=== PATIENT | male | born 1970 | race Caucasian/White ===

== ENCOUNTER 2017-08-24 03:13 | Emergency (ER) | payer OTHER ==
[~2017-08-24] VITALS: Ht 182.9 cm; Wt 72.6 kg
--- NOTE | 2017-08-24 03:25 | Emergency Room Report ---
History of Present Illness General Chief Complaint: Abdominal Pain Source: Patient, EMS Present Illness HPI This is a 47-year-old male with no past medical history. He presents with chief complaint of right flank pain. Onset was last Sunday. He called 911 but a runaway. He also has some dark urine. He was doing well until tonight when the pain came on again. Pain is severe. Right side. No radiation. Pain is 9/ 10. Has nausea but no vomiting. Also has some dysuria. No discharge. Urine is dark. No family history of kidney stone. Allergies: Coded Allergies: No Known Allergies (Unverified , 08/24/17) Patient History Past Medical History: none, see triage record, old chart reviewed Past Surgical History: none Pertinent Family History: none Social History: Denies: smoking Immunizations: other Reviewed Nursing Documentation: PMH: Agreed, PSxH: Agreed Nursing Documentation-PMH Hx Hypertension: Yes Review of Systems Eye: Denies: eye pain, blurred vision ENT: Denies: ear pain, nose congestion, throat swelling Respiratory: Denies: cough, shortness of breath Cardiovascular: Denies: chest pain, palpitations Gastrointestinal: Reports: abdominal pain, Denies: diarrhea, nausea, vomiting Musculoskeletal: Denies: back pain, joint pain Skin: Denies: rash Neurological: Denies: headache, numbness Endocrine: Denies: increased thirst, increased urine Hematologic/Lymphatic: Denies: easy bruising All Other Systems: negative except mentioned in HPI Physical Exam Vital Signs Date Time Temp Pulse Resp B/P (MAP) Pulse Ox O2 Delivery O2 Flow Rate FiO2 08/24/17 03:12 97.9 64 18 180/92 98 Room Air vitals with high blood pressure Sp02 EP Interpretation: reviewed, normal General Appearance: well appearing, alert, mild distress - From pain Head: normocephalic, atraumatic Eyes: bilateral eye PERRL, bilateral eye EOMI ENT: hearing grossly normal, normal pharynx Neck: full range of motion, supple, no meningismus Respiratory: chest non-tender, lungs clear, normal breath sounds Cardiovascular #1: regular rate, rhythm, no murmur Gastrointestinal: normal bowel sounds, non tender, no mass, no organomegaly, no bruit, non-distended Musculoskeletal: back normal, gait/station normal, normal range of motion Psychiatric: mood/affect normal Skin: warm/dry Medical Decision Making Diagnostic Impression: Primary Impression: Ureteral calculus, right ER Course Patient presents with kidney stone ureteral stone. Pain is better controlled now. We'll discharge home. No evidence of infection. No evidence of kidney failure. Lab Results Impression labs unremarkable CT/MRI/US Diagnostic Results CT/MRI/US Diagnostic Results : Imaging Test Ordered: CT abdomen and Pelvis Impression read by radiologist. Right UVJ stone measuring 4-5 mm. Last Vital Signs Date Time Temp Pulse Resp B/P (MAP) Pulse Ox O2 Delivery O2 Flow Rate FiO2 08/24/17 03:12 97.9 64 18 180/92 98 Room Air Status: improved Disposition: HOME, SELF-CARE Condition: Stable Scripts Tamsulosin Hcl (TAMSULOSIN HCL*) 0.4 Mg Cap.er.24h 0.4 MG ORAL BEDTIME, #14 CAP Prov: SWAPNA HOLDER M.D. 08/24/17 Hydrocodone/Acetaminophen 5-325* (HYDROCODONE/ACETAMINOPHEN 5-325*) 1 Each Tablet 1 TAB ORAL Q6H Y for For Pain, #30 TAB 0 Refills Prov: SWAPNA HOLDER M.D. 08/24/17 Additional Instructions: Followup with your DrDeclan at [facility] in a couple days. You would need a referral to see a urologist. Return if symptom worsen. SWAPNA HOLDER M.D. Aug 24, 2017 03:25
[2017-08-24] MEDS ORDERED: Ketorolac 30mg Inj IV ONE (03:30)
[2017-08-24 03:57] LABS: APPEARANCE,URINE CLEAR; KETONES,URINE NEGATIVE (NEGATIVE); LEUKOCYTE ESTERASE ,URINE NEGATIVE (NEGATIVE); NITRITE,URINE NEGATIVE (NEGATIVE); PH,URINE 5 (4.5-8.0); PROTEIN,URINE 1+ (NEGATIVE); UROBILINOGEN,URINE NORMAL MG/DL (0.0-1.0)
[2017-08-24 04:07] LABS: ANION GAP 6 mmol/L (5-15); CALCIUM 8.9 MG/DL (8.5-10.1); CARBON DIOXIDE 30 MMOL/L (21-32); CHLORIDE 105 MMOL/L (98-107); CREATININE 1.1 MG/DL (0.55-1.30); GLOMERULAR FILTRATION RATE > 60 mL/min (>60); POTASSIUM 3.8 MMOL/L (3.5-5.1); SODIUM 141 MMOL/L (136-145)
[2017-08-24 04:22] LABS: BACTERIA,URINE OCCASIONAL /HPF; SQUAMOUS EPITHELIAL CELL,UR OCCASIONAL /LPF (NONE/OCC); WBC,URINE 0-2 /HPF (0 - 0)
[2017-08-24] MEDS ORDERED: TAMSULOSIN HCL0.4 MG ORAL (04:36)
[2017-08-24] MEDS ORDERED: HYDROCODON-ACE1 EA15 ORAL (04:36)
[2017-08-24] MEDS ORDERED: Morphine Sulfate 4mg/ml Inj IVP ONE (04:45)
[2017-08-24 04:48] VITALS: BP 180/92
--- NOTE | 2017-08-24 09:10 | Diagnostic Imaging Report ---
Indication: Abdominal pain Technique: Spiral acquisitions obtained through the abdomen and pelvis. No oral or IV contrast, per urinary stone protocol. Multiplanar reconstructions were generated. Total dose length product 693 mGycm. CTDIvol(s) 13 mGy. Dose reduction achieved using automated exposure control Comparison: None Findings: There is a 4 mm calculus in the distal right ureter, just proximal to the ureteral orifice. There is mild right hydroureter, minimal right hydronephrosis. The right kidney demonstrates a 5 mm lower pole calyceal calculus. There is nonspecific somewhat high medullary attenuation bilaterally. The left kidney is unremarkable. Lack of IV contrast limits assessment of the renal parenchyma, no renal parenchymal mass or cyst demonstrated. Normal appendix. No evidence of diverticulosis or diverticulitis. No small bowel distention. No free or loculated intraperitoneal air or fluid is evident. Distal esophagus, stomach, duodenum are unremarkable. Lack of IV contrast limits assessment of the solid organs. The liver, gallbladder, bile ducts, pancreas, spleen are unremarkable. The right adrenal is diffusely somewhat prominent. The left adrenal demonstrates a low-attenuation (-7 Hounsfield units) 2.3 cm long axis dimension mass in the posterior medial limb. The remainder of the left adrenal is somewhat hypertrophic. No pelvic mass or adenopathy. No retroperitoneal or mesenteric mass or adenopathy. The included lung bases are clear. The bones demonstrate lumbar levoscoliotic deformity and secondary degenerative change. Impression: Positive for 4 mm distal right ureteral calculus, resulting in mild hydroureter and minimal hydronephrosis 5 mm nonobstructive right lower pole calyceal calculus 2.3 cm low-attenuation left adrenal mass, consistent with a benign adenoma Lumbar scoliosis with secondary degenerative change This agrees with the preliminary interpretation provided overnight by [facility]. The CT scanner at [facility] is accredited by the [employer] and the scans are performed using protocols designed to limit radiation exposure to as low as reasonably achievable to attain images of sufficient resolution adequate for diagnostic evaluation.
== END 2017-08-24 06:02 | disposition home or self-care (01) ==
LOC: EDBD 03:13 → EMR 03:30
DX: N13.2 Hydronephrosis with renal and ureteral calculous obstruction (principal); M41.86 Other forms of scoliosis, lumbar region
CPT/HCPCS: 36415; 74176; 80048; 81003; 96374; 96375; 99284; J1885; J2270; J2405